=== PATIENT | male | born 1995 | race Caucasian/White ===

== ENCOUNTER 2022-02-13 13:31 | Observation (INO) | payer SELFPAY ==
[2022-02-13] MEDS ORDERED: Lorazepam 2 MG/ML VIAL ONE (13:44)
[2022-02-13] MEDS ORDERED: Ketorolac Tromethamine 30 MG/ML VIAL ONE ×2 (15:39→18:31)
[2022-02-13] MEDS ORDERED: Morphine 4 MG/ML VIAL ONE (15:39)
[2022-02-13] MEDS ORDERED: EPINEPHrine 1 MG/ML AMP ONE (17:42)
[2022-02-13] MEDS ORDERED: Bupivacaine PF 0.5% 30 ML VIAL ONE (17:42)
[2022-02-13] MEDS ORDERED: Lidocaine 2% PF 5 ML VIAL ONE (17:53)
[2022-02-13] MEDS ORDERED: PROPOFOL 20 ML ONE (17:53)
[2022-02-13] MEDS ORDERED: Rocuronium Bromide 10 MG/ML (10ML VIAL) ONE (17:53)
[2022-02-13] MEDS ORDERED: Fentanyl 100 MCG/2 ML VIAL ONE ×2 (17:53→19:36)
[2022-02-13] MEDS ORDERED: Piperacillin/Tazobactam 3.375 GM in Sodium Chloride 0.9% 100 ML IVPB SCH (18:15)
[2022-02-13] MEDS ORDERED: Dexamethasone 20 MG/5 ML VIAL ONE (18:30)
[2022-02-13] MEDS ORDERED: Ondansetron PF 4 MG/2 ML Vial ONE (18:30)
[2022-02-13] MEDS ORDERED: Glycopyrrolate 0.2 MG/ML 5 ML SYRINGE ONE (19:26)
[2022-02-13] MEDS ORDERED: Morphine 2 MG/ML VIAL SLOW IVP PRN (20:47)
[2022-02-13] MEDS ORDERED: traMADol HCl 50 MG TAB PO PRN ×2 (20:51→20:53)
[2022-02-13] MEDS: Morphine 2 MG/ML VIAL SLOW IVP PRN (21:39)
[2022-02-13] MEDS: Piperacillin/Tazobactam 3.375 GM in Sodium Chloride 0.9% 100 ML IVPB SCH (22:47)
[2022-02-13] MEDS: Lactated Ringer's 1,000 ML IV SCH (22:56)
[2022-02-13] MEDS ORDERED: Ketorolac Tromethamine 30 MG/ML VIAL IVP SCH (23:00)
[2022-02-14] MEDS: Lactated Ringer's 1,000 ML IV SCH (02:05)
[2022-02-14] MEDS: Morphine 2 MG/ML VIAL SLOW IVP PRN (02:12)
[2022-02-14 05:46] LABS: ALT (SGPT) 200 U/L (8-55); AST (SGOT) 103 U/L (5-34); Albumin 3.9 g/dL (3.5-5.0); Alkaline Phosphatase 128 U/L (40-110); Anion Gap 16 mmol/L (10-20); BUN (Urea Nitrogen) 11 mg/dL (8.9-20.6); Bilirubin, Total 1.4 mg/dL (0.2-1.2); Calc. Creatinine Clearance 205 mL/min (70-130); Calcium 9.1 mg/dL (7.8-10.44); Carbon Dioxide 22 mmol/L (22-29); Chloride 104 mmol/L (98-107); Globulin 3.3 g/dL (2.4-3.5); Glucose 141 mg/dL (70-105); Potassium 4.6 mmol/L (3.5-5.1); Protein, Total 7.2 g/dL (6.0-8.3); Sodium 137 mmol/L (136-145)
[2022-02-14 05:51] LABS: #Monocytes 1.1 10x3/uL (0.0-1.1); %Basophils 0.1 % (0.0-2.0); %Lymphocytes 8.7 % (18.0-47.0); %Monocytes 5.9 % (0.0-10.0); %Neutrophils 84.6 % (40.0-75.0); Hemoglobin 13.7 g/dL (13.5-17.5); Mean Corpuscular HGB CONC 32.2 g/dL (32.0-36.0); Mean Corpuscular Hemoglobin 25.8 pg (27.0-33.0); Mean Corpuscular Volume 79.9 fl (81.2-95.1); Mean Platelet Volume 9.8 fl (7.4-10.4); Platelet Count 311 10x3/uL (150-450); RBC Distribution Width 14.9 % (11.5-14.5); Red Blood Cell (RBC) Count 5.32 10x6/uL (4.32-5.72); White Blood Cell (WBC) Count 18.9 10x3/uL (3.5-10.5)
[2022-02-14] MEDS ORDERED: Ketorolac Tromethamine 30 MG/ML VIAL IVP SCH (06:00)
[2022-02-14] MEDS: Piperacillin/Tazobactam 3.375 GM in Sodium Chloride 0.9% 100 ML IVPB SCH (06:40)
[2022-02-14 07:56] VITALS: BP 135/79; TEMP 97.7
== END 2022-02-14 08:45 | disposition home or self-care (01) ==
LOC: CSHERS 13:31 → CSHTELE 16:25
PROVIDERS: ADMIT Specialist; ATTEND Specialist
PROC: 0FT44ZZ Resection of Gallbladder, Percutaneous Endoscopic Approach (ICD-10-PCS; principal; 2022-02-14)
DX: K80.12 Calculus of gallbladder with acute and chronic cholecystitis without obstruction (principal); K82.1 Hydrops of gallbladder; Z87.891 Personal history of nicotine dependence
CPT/HCPCS: 36415; 76705; 80053; 85025; 88304; 96374; 96375; 96376; C1713; G0378; J0171; J1100; J1885; J2001; J2060; J2270; J2405; J2543; J2704; J3010; J3490; J7120; S0020

== ENCOUNTER 2022-02-14 09:20 | Emergency (ER) | payer SELFPAY | END 2022-02-14 09:45 | disposition home or self-care (01) | LOC: CSHERS 09:20 | DX: G89.18 Other acute postprocedural pain (principal); R10.11 Right upper quadrant pain; I10 Essential (primary) hypertension; J45.909 Unspecified asthma, uncomplicated; Z87.891 Personal history of nicotine dependence | CPT/HCPCS: 99283 ==